=== PATIENT | male | born 1990 | race Caucasian/White ===

== ENCOUNTER 2017-05-30 05:37 | Emergency (ER) | payer BC ==
[~2017-05-30] VITALS: Ht 177.8 cm; Wt 65.5 kg
[2017-05-30 05:41] VITALS: BP 133/81
== END 2017-05-30 08:51 | disposition home or self-care (01) ==
LOC: ED 06:18
DX: S62.660A Nondisplaced fracture of distal phalanx of right index finger, initial encounter for closed fracture (principal); X58.XXXA Exposure to other specified factors, initial encounter; Y93.89 Activity, other specified; Y92.89 Other specified places as the place of occurrence of the external cause; Y99.8 Other external cause status
CPT/HCPCS: 29130; 99284